=== PATIENT | female | born 1965 | race Caucasian/White ===

== ENCOUNTER 2018-02-19 21:41 | Emergency (ER) | payer OTHER ==
--- NOTE | 2018-02-19 22:16 | Emergency Department Record ---
History of Present Illness - General Chief complaint: Lower Extremity Pain Stated complaint: RT LEG PAIN Time Seen by Provider: 02/19/18 21:42 Source: Patient Mode of Arrival: Ambulatory Limitations: No limitations - History of Present Illness Initial comments: 52 yo female presents to ED for evaluation of right sided lateral hip pain that began last night. 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 Patient reports that she was walking around a lot today at work and her reports that her pain symptoms worsened throughout the day. Patient denies taking anything for her pain symptoms, denies fevers, chills, or rash symptoms to the area. Patient denies health problems at her baseline. MD Complaint: Extremity pain Onset/Timin -: Days(s) Location: Right History of Same: No Radiation: Distal Severity scale (1-10): 7 Quality: Sharp, Stabbing Consistency: Getting worse Improves with: Other (Sitting supine) Worsens with: Other (Flesion of the lower extremity) Associated Symptoms: Denies other symptoms - Related Data Home Medications Medication Instructions Recorded Confirmed Last Taken No Home Med [NO HOME MEDS] 02/19/18 02/19/18 Unknown Allergies Allergy/AdvReac Type Severity Reaction Status Date / Time No Known Allergies Allergy Unverified 12/11/17 11:06 Travel Screening - Travel/Exposure Within Last 30 Days Have you traveled within the last 30 days?: No - Travel Symptoms Symptom Screening: None Review of Systems Constitutional: Denies: Chills, Fever, Malaise, Night sweats Eyes: Denies: Eye discharge, Eye pain ENT: Denies: Congestion, Ear pain, Epistaxis Respiratory: Denies: Cough, Dyspnea Cardiovascular: Denies: Chest pain, Dyspnea on exertion Endocrine: Denies: Fatigue, Heat or cold intolerance Gastrointestinal: Denies: Abdominal pain, Nausea, Vomiting Genitourinary: Denies: Incontinence, Retention Musculoskeletal: Reports: Arthralgia. Denies: Back pain, Gout, Joint swelling Skin: Denies: Bruising, Change in color Neurological: Denies: Abnormal gait, Confusion, Headache, Seizure Psychiatric: Denies: Anxiety Hematological/Lymphatic: Denies: Anemia, Blood Clots Past Medical History - SOCIAL HISTORY Smoking Status: Heavy tobacco smoker (>10/day) Alcohol Use: Heavy Drug Use: None - RESPIRATORY Hx Respiratory Disorders: No - CARDIOVASCULAR Hx Cardio Disorders: No - NEURO Hx Neuro Disorders: No - GI Hx GI Disorders: No - Hx Genitourinary Disorders: No - ENDOCRINE Hx Endocrine Disorders: No - MUSCULOSKELETAL Hx Musculoskeletal Disorders: No - PSYCH Hx Psych Problems: No - HEMATOLOGY/ONCOLOGY Hx Hematology/Oncology Disorders: No Family Medical History Any Significant Family History?: No Family Hx Comment (NOT TO BE USED IN PLACE OF ITEMS BELOW): DENIES Physical Exam - General General Appearance: Alert, Oriented x3, Cooperative, Moderate distress Limitations: No limitations - Head Head exam: Atraumatic, Normocephalic, Normal inspection Head exam detail: negative: Abrasion, Contusion, Lyn's sign, General tenderness, Hematoma, Laceration - Eye Eye exam: Normal appearance. negative: Conjunctival injection, Periorbital swelling, Periorbital tenderness, Scleral icterus - ENT Ear exam: negative: Auricular hematoma, Auricular trauma Nasal Exam: negative: Active bleeding, Discharge, Dried blood, Foreign body Mouth exam: negative: Drooling, Laceration, Muffled voice, Tongue elevation - Neck Neck exam: Normal inspection. negative: Meningismus, Tenderness - Respiratory Respiratory exam: Normal lung sounds bilaterally. negative: Rales, Respiratory distress, Rhonchi, Stridor - Cardiovascular Cardiovascular Exam: Regular rate, Normal rhythm, Normal heart sounds - GI/Abdominal GI/Abdominal exam: Soft. negative: Rebound, Rigid, Tenderness - Rectal Rectal exam: Deferred - exam: Deferred - Extremities Extremities exam: Tenderness (TTP to the right hip/lateral thigh, no erythema noted, no crepitation noted on examination. FROM of the lower extremity, strong DPP is present, no lower extremity edema is present.). negative: Calf tenderness, Pedal edema - Back Back exam: Denies: CVA tenderness (R), CVA tenderness (L) - Neurological Neurological exam: Alert, Normal gait, Oriented X3 - Psychiatric Psychiatric exam: Normal affect, Normal mood - Skin Skin exam: Normal color. negative: Abrasion Type of lesion: negative: abrasion Course Vital Signs 02/19/18 21:59 Temperature 97.5 F L Pulse Rate 92 H Respiratory 18 Rate Blood Pressure 142/86 Pulse Ox 97 - Reevaluation(s) Reevaluation #1: 02/19/18 22:44 Right hip/femur Osteopenia, nothing acute. Patient was updated on her radiology result, reports improvement in her pain symptoms. No clinical evidence for [id number] infection based on the patient's physical examination, symptoms are likely musculo-skeletal in origin. Will treat with Motrin 600 mg as directed and instructions for follow-up with her PCP in 3-5 days as directed. Reevaluation #2: 02/20/18 00:03 Labs reviewed and grossly unremarkable for an acute process. Patient reassessed and reports improvement in her pain symptoms, patient appears stable for discharge at this time. Medical Decision Making - Lab Data Result diagrams: 02/19/18 23:30 02/19/18 23:30 Disposition Disposition: Discharge Clinical Impression: Right leg pain Disposition: Home, Self-Care Condition: (2) Stable Instructions: Leg Pain (ED) Additional Instructions: Return to ED if your symptoms worsen or if you have any concerns. Motrin as directed. Follow-up with your family doctor in 3-5 days as directed. Forms: Patient Portal Access Time of Disposition: 00:10 Quality - Quality Measures Quality Measures: N/A - Blood Pressure Screening Does Patient Have Any of the Following: No Blood Pressure Classification: Pre-Hypertensive BP Reading Systolic Measurement: 142 Diastolic Measurement: 86 Screening for High Blood Pressure: < Pre-Hypertensive BP, F/U Documented > [ [id number]] Pre-Hypertensive Follow-up Interventions: Referral to alternative/primary care provider.
[2018-02-19] MEDS: KETOROLAC 30 MG/ML VIAL IM ONE (22:23)
[2018-02-19] MEDS: FENTANYL PF 100MCG/2ML VIAL IVP ONE (23:24)
[2018-02-19 23:44] LABS: BASO % 0.5 % (0-6); EOS % 2.1 % (0-6); GRAN % 65.3 % (47-80); HEMATOCRIT 38.7 % (35.0-47.0); HEMOGLOBIN 12.6 gm/dl (11.6-16.0); MEAN CELL VOLUME 97.7 fl (81-97); MEAN CORPUSCULAR HEMOGLOBIN 31.8 pg (27-33); MEAN CORPUSCULAR HGB CONC 32.6 g/dl (32-36); MEAN PLATELET VOLUME 9.2 fl (7.4-10.4); MONO % 8.1 % (0-9); PLATELET COUNT 222 K/uL (130-400); RED BLOOD COUNT 3.96 M/uL (3.80-5.40); RED CELL DISTRIBUTION WIDTH 13.2 % (11.5-14.5); WHITE BLOOD COUNT W/O DIFF 7.7 K/uL (4.2-12.2)
[2018-02-19 23:55] LABS: BILIRUBIN,TOTAL < 0.20 mg/dL (0.2-1.0); BLOOD UREA NITROGEN 14 mg/dL (6-20); CREATININE 0.8 mg/dL (0.5-0.9); EST GLOMERULAR FILTRATION RATE > 60 mL/min; TOTAL PROTEIN 6.6 g/dL (6.6-8.7)
[2018-02-19 23:57] LABS: GLUCOSE,RANDOM 101 mg/dL (74-109)
[2018-02-20] LABS: ALB/GLOB RATIO 1.4 (1.1-1.8); ALBUMIN 3.9 g/dL (4.0-5.0); ALKALINE PHOSPHATASE 115 U/L (35-104); ALT/SGPT 20 U/L (<33); AST/SGOT 16 U/L (10.0-35.0); C-REACTIVE PROTEIN 0.39 mg/dL (<0.5)
[2018-02-20 00:20] LABS: ERYTHROCYTE SEDIMENTATION RATE 8 mm/hr (0-30)
--- NOTE | 2018-02-20 10:50 | RADIOLOGY REPORT ---
EXAM: PELVIS AND RIGHT HIP HISTORY: PAIN. TECHNIQUE: AP view of the pelvis and two views of the right hip were obtained. Comparison: None. Encounter: Initial. FINDINGS: Osteopenia. Negative for an acute fracture or dislocation. There are soft tissue calcifications which may relate to phleboliths. The soft tissues are otherwise unremarkable. IMPRESSION: OSTEOPENIA. NO ACUTE OSSEOUS ABNORMALITY. JOB NUMBER: [id number] MTDD
== END 2018-02-20 00:21 | disposition home or self-care (01) ==
LOC: ER 21:41
DX: M79.652 Pain in left thigh (principal); M25.552 Pain in left hip; F17.210 Nicotine dependence, cigarettes, uncomplicated
CPT/HCPCS: 99284 ×2; 96374; 96372; 85025; 85651; 86140; 80053; 73502; J1885; J3010